=== PATIENT | female | born 1975 | race Hispanic/Latino ===

== ENCOUNTER 2017-09-22 08:00 | Outpatient (CLI) | payer OTHER | END 2017-09-22 08:01 | disposition home or self-care (01) | LOC: BICMAMMO 08:00 | PROVIDERS: ATTEND Family Medicine | DX: Z12.31 Encounter for screening mammogram for malignant neoplasm of breast (principal); R92.1 Mammographic calcification found on diagnostic imaging of breast | CPT/HCPCS: 77063; 77067 ==

== ENCOUNTER 2018-10-13 13:09 | Outpatient (CLI) | payer OTHER ==
--- NOTE | 2018-10-13 13:41 | MMO ---
Bilateral MAMMO Bilat Screen [facility]. CLINICAL HISTORY: Patient is 43 years old and is seen for screening. The patient has no family history of breast cancer. The patient has no personal history of cancer. VIEWS: The views performed were: bilateral craniocaudal with tomosynthesis; bilateral mediolateral oblique with tomosynthesis; and bilateral exaggerated craniocaudal. FILMS COMPARED: The present examination has been compared to prior imaging studies performed at [facility] on 09/22/2017, and at [facility] on 01/27/2012. MAMMOGRAM FINDINGS: The breasts are heterogeneously dense, which could obscure a lesion on mammography. There is a stable nodule seen in the left breast. There are no suspicious masses, suspicious calcifications, or new areas of architectural distortion. IMPRESSION: THERE IS NO MAMMOGRAPHIC EVIDENCE OF MALIGNANCY. A ROUTINE FOLLOW-UP MAMMOGRAM IN 1 YEAR IS RECOMMENDED. THE RESULTS OF THIS EXAM WERE SENT TO THE PATIENT. ACR BI-RADS Category 2 - Benign finding MAMMOGRAPHY NOTE: 1. A negative mammogram report should not delay a biopsy if a dominant of clinically suspicious mass is present. 2. Approximately 10% to 15% of breast cancers are not detected by mammography. 3. Adenosis and dense breasts may obscure an underlying neoplasm.
== END 2018-10-13 13:10 | disposition home or self-care (01) ==
LOC: BICMAMMO 13:09
PROVIDERS: ATTEND Family Medicine
DX: Z12.31 Encounter for screening mammogram for malignant neoplasm of breast (principal)
CPT/HCPCS: 77063; 77067

== ENCOUNTER 2019-10-27 09:55 | Outpatient (CLI) | payer OTHER ==
--- NOTE | 2019-10-27 10:57 | MMO ---
Bilateral MAMMO Bilat Screen [facility]. CLINICAL HISTORY: Patient is 44 years old and is seen for screening. The patient has no family history of breast cancer. The patient has no personal history of cancer. VIEWS: The views performed were: bilateral craniocaudal with tomosynthesis and bilateral mediolateral oblique with tomosynthesis. FILMS COMPARED: The present examination has been compared to prior imaging studies performed at [facility] on 09/22/2017 and 10/13/2018, and at [facility] on 01/27/2012. This study has been interpreted with the assistance of computer-aided detection. MAMMOGRAM FINDINGS: The breasts are heterogeneously dense, which could obscure a lesion on mammography. There are stable benign appearing calcifications seen in both breasts. Nodularity is stable. There are no suspicious masses, suspicious calcifications, or new areas of architectural distortion. IMPRESSION: THERE IS NO MAMMOGRAPHIC EVIDENCE OF MALIGNANCY. A ROUTINE FOLLOW-UP MAMMOGRAM IN 1 YEAR IS RECOMMENDED. THE RESULTS OF THIS EXAM WERE SENT TO THE PATIENT. ACR BI-RADS Category 2 - Benign finding MAMMOGRAPHY NOTE: 1. A negative mammogram report should not delay a biopsy if a dominant of clinically suspicious mass is present. 2. Approximately 10% to 15% of breast cancers are not detected by mammography. 3. Adenosis and dense breasts may obscure an underlying neoplasm. Reported by: JAYLEEN MINA MD Electonically Signed: [id number]
== END 2019-10-27 09:56 | disposition home or self-care (01) ==
LOC: BICMAMMO 09:55
PROVIDERS: ATTEND Family Medicine
DX: Z12.31 Encounter for screening mammogram for malignant neoplasm of breast (principal)
CPT/HCPCS: 77063; 77067

== ENCOUNTER 2020-04-25 10:38 | Outpatient (CLI) | payer OTHER ==
--- NOTE | 2020-04-25 12:05 | MRI ---
MRI lumbar spine noncontrast HISTORY: Low back pain. Bilateral radiculopathy. FINDINGS: The conus medullaris has a normal appearance. Vertebral body heights and alignment are main tained. There is desiccation of the lowest 3 intervertebral discs. T12-L1, L1-2, L2-3: Central canal and neural foramina are patent. L3-4: Desiccation of the disc. Osteophytosis of each facet with mild joint fluid. Thecal sac is paten t. Mild stenosis of each neural foramen. L4-5: Desiccation of the disc. Mild posterior disc. Osteophytosis of the facets. Thecal sac is patent . Moderate stenosis of each neural foramen. L5-S1: Thecal sac is patent. Osteophytosis of the facets. Mild stenosis of the left neural foramen. R ight neural foramen is patent. IMPRESSION : Mild degenerative changes lower lumbar spine as detailed above, including moderate degree of stenosis of each neural foramen at the L4-5 level. Clinical correlation regarding each L4 dermatome is required.
== END 2020-04-25 10:39 | disposition home or self-care (01) ==
LOC: TBSIIMAG 10:38
PROVIDERS: ATTEND Family Medicine
DX: M54.42 Lumbago with sciatica, left side (principal); G89.29 Other chronic pain; M53.3 Sacrococcygeal disorders, not elsewhere classified; M40.00 Postural kyphosis, site unspecified; M47.816 Spondylosis without myelopathy or radiculopathy, lumbar region; M48.061 Spinal stenosis, lumbar region without neurogenic claudication
CPT/HCPCS: 72148

== ENCOUNTER 2020-06-03 07:13 | Outpatient (CLI) | payer OTHER ==
[2020-06-04 02:09] LABS: SARS-CoV-2 MS2 Positive; SARS-CoV-2 N Gene Negative; SARS-CoV-2 S Gene Negative; SARS-CoV-2 by NAA Not Detected (NotDetected); SARS-CoV-2 orf1ab Negative
== END 2020-06-03 07:14 | disposition home or self-care (01) ==
LOC: LABBT 07:13
PROVIDERS: ATTEND Internal Medicine
DX: Z20.828 Contact with and (suspected) exposure to other viral communicable diseases (principal); Z83.71 Family history of colonic polyps
CPT/HCPCS: 87635; U0003

== ENCOUNTER 2020-06-05 10:12 | Day surgery (SDC) | payer OTHER ==
[2020-06-03 14:19] VITALS: BMI 19.7
[2020-06-05] MEDS ORDERED: PROPOFOL 200 MG/20 ML VIAL ONE (11:54)
[2020-06-05] MEDS ORDERED: Lidocaine 1% PF 5 ML VIAL ONE (11:54)
--- NOTE | 2020-06-05 12:13 | OP ---
DATE OF PROCEDURE: 06/05/2020 PROCEDURE PERFORMED: Colonoscopy with polypectomy. INDICATIONS FOR PROCEDURE: Screening for malignant neoplasm of the colon, family history of multiple adenomatous colonic polyps (father diagnosed with greater than 20 adenomas in the last 2 years). DESCRIPTION OF PROCEDURE: After the risks and benefits of the procedure were explained to the patient including risks of bleeding, infection, perforation, reactions to anesthesia, aspiration, and/or pain, informed consent was obtained. The patient was then taken to the endoscopy suite, where she was maneuvered into the left lateral decubitus position followed by introduction of deep sedation via propofol and anesthesia support. Once adequate sedation was achieved, a digital rectal examination was performed followed by introduction of the standard colonoscope, which was then advanced to the terminal ileum with moderate difficulty due to the patient's body habitus, significant looping of the scope and tortuous colon. The quality of the prep was excellent with adequate visualization of the mucosa achieved. The patient tolerated the procedure well with no immediate perioperative complications. Upon conclusion of the procedure, all equipment was removed from the patient and she was transferred to Day Stay in satisfactory condition. FINDINGS: Digital rectal exam: Small external hemorrhoids were seen on external examination that were nonbleeding. No masses palpated with more normal sphincter tone. Colonoscopy findings: Normal-appearing mucosa was seen within the terminal ileum as well as at the appendiceal orifice and ileocecal valve. A 5-mm sessile polyp was seen in the cecum and completely removed with snare cautery polypectomy. It was retrieved and placed in a specimen jar for further evaluation. Normal-appearing mucosa was then seen in ascending colon, transverse colon, descending colon, and in the proximal sigmoid colon. A 6-to 7-mm sessile polyp was seen in the distal sigmoid colon and completely removed with snare cautery polypectomy. It was retrieved and placed in a specimen jar for further evaluation. Normal-appearing mucosa was then seen in the rectum with normal-appearing tissue on rectal retroflexion. IMPRESSION: 1. A 4-to 5-mm cecal polyp, status post snare cautery polypectomy. 2. A 6-to 7-mm sigmoid colon polyp, status post snare cautery polypectomy. 3. Small external hemorrhoids. RECOMMENDATIONS: 1. We would follow up on the polypectomy results with repeat colonoscopy interval depending on pathology report. Given her family history of multiple adenomatous polyps (father), I would recommend a repeat colonoscopy in 3 years for further evaluation. 2. We will continue current medications. 3. We would avoid any NSAIDs or anticoagulation for the next 48 hours. 4. Followup in the GI Clinic as needed. Job ID: [id number]
== END 2020-06-05 12:45 | disposition home or self-care (01) ==
LOC: SDC 10:12
PROVIDERS: ATTEND Internal Medicine
PROC: 0DBN8ZZ Excision of Sigmoid Colon, Via Natural or Artificial Opening Endoscopic (ICD-10-PCS; principal; 2020-06-05)
PROC: 0DBH8ZZ Excision of Cecum, Via Natural or Artificial Opening Endoscopic (ICD-10-PCS; principal; 2020-06-05)
DX: Z12.11 Encounter for screening for malignant neoplasm of colon (principal); D12.5 Benign neoplasm of sigmoid colon; K63.5 Polyp of colon; K64.8 Other hemorrhoids; Z83.71 Family history of colonic polyps
CPT/HCPCS: 88305; J2704

== ENCOUNTER 2020-10-01 09:17 | Emergency (ER) | payer OTHER ==
[2020-10-01] MEDS ORDERED: Acetaminophen 500 MG TAB ONE (10:28)
[2020-10-01] MEDS ORDERED: Ketorolac Tromethamine 30 MG/ML VIAL ONE (10:28)
[2020-10-01] MEDS ORDERED: Morphine 4 MG/ML VIAL ONE (10:28)
== END 2020-10-01 11:10 | disposition home or self-care (01) ==
LOC: ERS 09:17
DX: M54.5 Low back pain (principal); X50.1XXA Overexertion from prolonged static or awkward postures, initial encounter
CPT/HCPCS: 96372; 99283; J1885; J2270

== ENCOUNTER 2020-10-31 08:39 | Outpatient (CLI) | payer OTHER | END 2020-10-31 08:40 | disposition home or self-care (01) | LOC: BICMAMMO 08:39 | PROVIDERS: ATTEND Family Medicine | DX: Z12.31 Encounter for screening mammogram for malignant neoplasm of breast (principal) | CPT/HCPCS: 77063; 77067 ==

== ENCOUNTER 2021-04-01 14:18 | Outpatient (CLI) | payer OTHER | END 2021-04-01 14:19 | disposition home or self-care (01) | LOC: BICMAMMO 14:18 | PROVIDERS: ATTEND Family Medicine | DX: Z13.820 Encounter for screening for osteoporosis (principal); M54.50 Low back pain, unspecified; M25.551 Pain in right hip; M25.552 Pain in left hip; M54.2 Cervicalgia; M24.80 Other specific joint derangements of unspecified joint, not elsewhere classified; M24.89 Other specific joint derangement of other specified joint, not elsewhere classified; M47.816 Spondylosis without myelopathy or radiculopathy, lumbar region; Z78.0 Asymptomatic menopausal state | CPT/HCPCS: 72052; 72100; 73521; 77080 ==

== ENCOUNTER 2023-08-04 12:30 | Outpatient (CLI) | payer BC | END 2023-08-04 12:31 | disposition home or self-care (01) | LOC: BICCT 12:30 | PROVIDERS: ATTEND Internal Medicine | DX: R31.29 Other microscopic hematuria (principal); N28.89 Other specified disorders of kidney and ureter; K59.00 Constipation, unspecified | CPT/HCPCS: 74178 ==

== ENCOUNTER 2025-01-17 08:27 | Outpatient (CLI) | payer BC | END 2025-01-17 08:28 | disposition home or self-care (01) | LOC: BICMAMMO 08:27 | PROVIDERS: ATTEND Internal Medicine | DX: Z12.31 Encounter for screening mammogram for malignant neoplasm of breast (principal) | CPT/HCPCS: 77063; 77067 ==

== ENCOUNTER 2025-02-15 14:04 | Outpatient (CLI) | payer BC | END 2025-02-15 14:05 | disposition home or self-care (01) | LOC: SJX 14:04 | PROVIDERS: ATTEND Internal Medicine | DX: R42 Dizziness and giddiness (principal); I67.82 Cerebral ischemia; R90.82 White matter disease, unspecified | CPT/HCPCS: 70553; 76376 ==

== ENCOUNTER 2025-03-01 15:29 | Outpatient (CLI) | payer BC | END 2025-03-01 15:30 | disposition home or self-care (01) | LOC: BICRAD 15:29 | PROVIDERS: ATTEND Internal Medicine | DX: M47.816 Spondylosis without myelopathy or radiculopathy, lumbar region (principal); M54.2 Cervicalgia; M47.812 Spondylosis without myelopathy or radiculopathy, cervical region | CPT/HCPCS: 72040; 72100 ==